=== PATIENT | male | born 1950 | race Caucasian/White ===

== ENCOUNTER → 2016-11-18 | Outpatient (CLI) | payer MEDICARE | END | disposition home or self-care (01) | LOC: PCVCIMAG 10:06 | PROVIDERS: ATTEND Internal Medicine Cardiovascular Disease | DX: E78.00 Pure hypercholesterolemia, unspecified (principal); I65.23 Occlusion and stenosis of bilateral carotid arteries; I10 Essential (primary) hypertension; I25.10 Atherosclerotic heart disease of native coronary artery without angina pectoris | CPT/HCPCS: 80061; 93005; 93880; G0463 ==

== ENCOUNTER → 2016-11-22 | Outpatient (CLI) | payer MEDICARE ==
[~2016-11-22] MED LIST: DIAZEPAM 10 MG TABLET ONE; FENTANYL PF 100 MCG/2 ML VIAL. ONE; HEPARIN for ARTERIAL LINE 1,500 ML ONE; HYDROCODONE/APAP 5/325MG TABLET. ONE; IODIXANOL 270 MG/ML 100 ML VIAL. ONE; IOHEXOL 350 MG/ML 100ML VIAL. ONE; IV NORMAL SALINE 1000ML BAG 1,000 ML ONE; LIDOCAINE 1% Multi-Dose 20 ML VIAL. ONE; MIDAZOLAM HCL 2 MG/2 ML VIAL. ONE
== END | disposition home or self-care (01) ==
LOC: PCVCIMAG 11:02
PROVIDERS: ATTEND Nuclear Medicine Nuclear Cardiology
DX: I65.23 Occlusion and stenosis of bilateral carotid arteries (principal); I25.10 Atherosclerotic heart disease of native coronary artery without angina pectoris; I70.1 Atherosclerosis of renal artery; E78.00 Pure hypercholesterolemia, unspecified; I10 Essential (primary) hypertension
CPT/HCPCS: 36223; 36252; 76937; 93458; C1751; C1760; C1769; C1894; J2250; J3010; J7030; Q9967

== ENCOUNTER → 2017-08-23 | Outpatient (CLI) | payer MEDICARE ==
--- NOTE | 2017-08-23 10:45 | PCVCIMAG ---
EXAM: BILATERAL CAROTID DUPLEX INDICATION: Carotid Occlusive Disease. FINDINGS: Doppler Measurements (centimeters per second): RIGHT: Peak CCA-73, Peak ECA-146, Diastolic ICA-46, Peak ICA-248, ICA/CCA Ratio-3.4. LEFT: Peak CCA-132, Peak ECA-101, Diastolic ICA-38, Peak ICA-104, ICA/CCA Ratio-1.0. RIGHT CAROTID: The carotid bulb has moderate plaque. The proximal internal carotid artery shows 70% stenosis. The common carotid artery shows no significant stenosis. The external carotid artery shows 40-50% stenosis. LEFT CAROTID: The carotid bulb has moderate plaque. The proximal internal carotid artery shows <40% stenosis. The common carotid artery shows no significant stenosis. The external carotid artery shows no significant stenosis. Antegrade flow in both vertebral arteries. IMPRESSION: 70% stenosis of the right internal carotid artery with moderate plaque. <40% stenosis of the left internal carotid artery with moderate plaque. LOC:[place] [id number]
== END | disposition home or self-care (01) ==
LOC: PCVCIMAG 08:30
PROVIDERS: ATTEND Internal Medicine Cardiovascular Disease
DX: I25.10 Atherosclerotic heart disease of native coronary artery without angina pectoris (principal); I10 Essential (primary) hypertension; E78.00 Pure hypercholesterolemia, unspecified; G47.33 Obstructive sleep apnea (adult) (pediatric); R94.31 Abnormal electrocardiogram [ECG] [EKG]; I65.23 Occlusion and stenosis of bilateral carotid arteries; I45.10 Unspecified right bundle-branch block; Z79.899 Other long term (current) drug therapy
CPT/HCPCS: 80061; 93005; 93880; G0463

== ENCOUNTER → 2017-11-29 | Outpatient (CLI) | payer MEDICARE | END | disposition home or self-care (01) | LOC: PCVCCLINIC 09:53 | DX: I25.10 Atherosclerotic heart disease of native coronary artery without angina pectoris (principal); I10 Essential (primary) hypertension; I65.29 Occlusion and stenosis of unspecified carotid artery; R93.1 Abnormal findings on diagnostic imaging of heart and coronary circulation; E78.00 Pure hypercholesterolemia, unspecified; G47.33 Obstructive sleep apnea (adult) (pediatric); R09.89 Other specified symptoms and signs involving the circulatory and respiratory systems; R94.31 Abnormal electrocardiogram [ECG] [EKG]; I45.10 Unspecified right bundle-branch block; Z79.82 Long term (current) use of aspirin; Z79.899 Other long term (current) drug therapy | CPT/HCPCS: 93005; G0463 ==

== ENCOUNTER → 2018-08-09 | Outpatient (CLI) | payer MEDICARE ==
--- NOTE | 2018-08-09 10:19 | PCVCIMAG ---
APPROVED REPORT Indications Stenosis Doppler Spectral Velocity Analysis PSV / EDVPSV / EDV ECA (R) 155 / 18 cm/sECA (L) 89 / 12 cm/s dICA (R) 42 / 15 cm/sdICA (L) 93 / 28 cm/s Yadira (R) 150 / 26 cm/smICA (L) 132 / 39 cm/s pICA (R) 262 / 70 cm/spICA (L) 47 / 11 cm/s Bulb (R) 47 / 8 cm/sBulb (L) 90 / 17 cm/s dCCA (R) 55 / 10 cm/sdCCA (L) 137 / 27 cm/s mCCA (R) 53 / 7 cm/smCCA (L) 139 / 27 cm/s Vert (R) 39 / 13 cm/sVert (L) 30 / 7 cm/s ICA/CCA 4.76 ICA/CCA 0.96 Findings The right carotid bulb has moderate plaque. The right proximal internal carotid artery shows 70-80% stenosis. The right common carotid artery shows no significant stenosis. The left carotid bulb has moderate plaque. The left proximal internal carotid artery shows 40-50% stenosis. The left common carotid artery shows <40% stenosis. The left external carotid artery shows no significant stenosis. Conclusion 1. Right internal carotid artery stenosis (70-80%) 2. Left internal carotid artery stenosis (40-50%) 3. Antegrade vertebral flow
--- NOTE | 2018-08-09 14:46 | PCVCIMAG ---
APPROVED REPORT Study performed: 08/09/2018 10:46:49 Exam: Stress Echocardiogram Indication: CAD,occluded PDA Ht: 5 ft 9 in HR: 86 bpm BP: 15/90 mmHg Rhythm: Bifascicular block Medical History Medical History: CAD s/p [place] Cardiac Risk Factors: HTN,KAITLIN, Previous Cardiac Procedures: PCI Pretest Chest Pain Characteristics: No chest pain Exercise History: Indeterminate Procedure The patient underwent an Exercise Stress Test using the Juan Protocol. Blood pressure, heart rate, and EKG were monitored. An Echocardiogram was performed by vein access technician in four stages in quad fashion. At peak stress, four selected images were obtained and placed side by side with resting images for comparison. Stress Test Details Stress Test: Exercise stress testing was performed using a Juan protocol. HR Resting HR: 86 bpmMax Heart Rate (APMHR): 151 bpm Max HR Achieved: 122 bpmTarget HR (85% APMHR): 128 bpm % of APMHR: 80 Recovery HR: 91 bpm HR response to stress: Normal HR response to stress BP Resting BP: 152/90 mmHg Max BP: 146/90 mmHg Recovery BP: 140/80 mmHg ECG Resting ECG: Bifascicular block ST Change: Non-ischemic Arrhythmia: APC's Recovery ECG: Bifascicular block Recovery ST Change: Non-ischemic Recovery Arrhythmia: occ pac Clinical Reason for Termination: Maximal effort Stress Symptoms: none Exercise duration: 4 min 27 sec Highest Stage Achieved: Stage 3: 3.4 mph at 14% grade. Exercise capacity: 7.0 METs Overall Exercise Capacity for Age: Poor Scale: Sedentary Angina Score: None No complications. Stress ECG Conclusion The patient exercised according to the JUAN protocol for 4:27 mins; achieving a work level of 7.0 METS. The resting heart rate of 86 bpm jodi to a maximum heart rate of 122 bpm. This value represent 80% of the maximal, age-predicted heart rate. The resting blood pressure of 152/90 mmHg, jodi to a maximum blood pressure of 146/90 mmHg. The exercise test was stopped due to fatigue. Pre-Stress Echo The resting Echocardiogram showed normal left ventricular contractility with an estimated Ejection Fraction of about 50-55%. Normal wall motion in all segments on baseline images. Post-Stress Echo The stress Echocardiogram showed normal left ventricular contractility with an estimated Ejection Fraction of about 60-65%. Normal augmentation of wall motion in all segments on post stress images. Clinical No clinical or ECG evidence for ischemia. Conclusion Clinical Response: Non-ischemic Exercise Capacity: Below Average Stress ECG Response: Non-ischemic Stress Echo Images: Non-ischemic No clinical, EKG or echocardiographic evidence for ischemia. No echocardiographic evidence for exercise induced ischemia. Normal stress echocardiogram with maximal exercise stress. <Conclusion> No clinical, EKG or echocardiographic evidence for ischemia. No echocardiographic evidence for exercise induced ischemia. Normal stress echocardiogram with maximal exercise stress.
== END | disposition home or self-care (01) ==
LOC: PCVCIMAG 12:46
PROVIDERS: ATTEND Internal Medicine Cardiovascular Disease
DX: I65.23 Occlusion and stenosis of bilateral carotid arteries (principal); I25.10 Atherosclerotic heart disease of native coronary artery without angina pectoris; I10 Essential (primary) hypertension; G47.33 Obstructive sleep apnea (adult) (pediatric)
CPT/HCPCS: 93325; 93351; 93880

== ENCOUNTER → 2019-04-09 | Outpatient (CLI) | payer MEDICARE ==
--- NOTE | 2019-04-09 16:17 | PCVCIMAG ---
APPROVED REPORT Laterality: Bilateral Indications Stenosis Risk Factors Hypertension: Hyperlipidemia Doppler Spectral Velocity Analysis PSV / EDVPSV / EDV ECA (R) 121 / 8 cm/sECA (L) 129 / 13 cm/s dICA (R) 66 / 22 cm/sdICA (L) 44 / 12 cm/s Yadira (R) 90 / 14 cm/smICA (L) 111 / 30 cm/s pICA (R) 275 / 62 cm/spICA (L) 145 / 39 cm/s Bulb (R) 76 / 13 cm/sBulb (L) 48 / 18 cm/s dCCA (R) 56 / 22 cm/sdCCA (L) 146 / 28 cm/s mCCA (R) 79 / 12 cm/smCCA (L) 110 / 19 cm/s Vert (R) 35 / 8 cm/sVert (L) 52 / 15 cm/s ICA/CCA 3.47ICA/CCA 1.32 Basic Measurements Blood Pressure: Pulses: Right Left RightLeft Brachial(Sitting) 122/84jxAk589/70mmHgTemporal Real Time B-Mode Imaging Vert. (R)AntegradeVert. (L)Antegrade Findings The right carotid bulb has moderately severe plaque. The right proximal internal carotid artery shows 70-80% stenosis. The right common carotid artery shows no significant stenosis. The right external carotid artery shows no significant stenosis. The left carotid bulb has moderate plaque. The left proximal internal carotid artery shows 50-60% stenosis. The left common carotid artery shows <40% stenosis. The left external carotid artery shows no significant stenosis. Conclusion 1. Right internal carotid artery stenosis (70-80%). 2. Left internal carotid artery stenosis (50-60%) 3. Left common carotid artery stenosis (<40%) 4. Antegrade vertebral flow Similar to a study dated July 2018
== END | disposition home or self-care (01) ==
LOC: PCVCIMAG 12:46
PROVIDERS: ATTEND Internal Medicine Cardiovascular Disease
DX: I65.23 Occlusion and stenosis of bilateral carotid arteries (principal); I25.10 Atherosclerotic heart disease of native coronary artery without angina pectoris; E78.00 Pure hypercholesterolemia, unspecified; R51 Headache; I10 Essential (primary) hypertension; G47.33 Obstructive sleep apnea (adult) (pediatric); E11.9 Type 2 diabetes mellitus without complications; Z99.89 Dependence on other enabling machines and devices; Z79.82 Long term (current) use of aspirin
CPT/HCPCS: 36415; 80061; 93005; 93880; G0463